=== PATIENT | male | born 1995 | race Caucasian/White ===

== ENCOUNTER 2017-02-28 20:22 | Emergency (ER) | payer OTHER ==
[2017-02-28] MEDS ORDERED: Sodium Chloride 0.9% 1000 ML 1,000 ML IV STA (20:30)
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
[2017-02-28] MEDS ORDERED: Sodium Chloride 0.9% 1000 ML 1,000 ML ONE (20:39)
[2017-02-28 20:49] LABS: BASOPHIL % 0.3 % (0.0-0.4); Eosinophil % 1.7 % (0.00-5.0); Granulocytes % 50.6 % (36.0-66.0); Lymphocytes % 36.5 % (24.0-44.0); Mean Cell Volume 85.5 fl (78-100); Mean Corpuscular Hemoglobin 29.3 pg (26-32); Mean Platelet Volume 10.3 fl (6-9.5); Monocytes % 10.9 % (0.0-12.0); Platelet Count 274 K/mm3 (150-450); Red Blood Count 5.25 M/mm3 (4.1-5.6); White Blood Count 10.2 K/mm3 (4.0-10.5)
[2017-02-28 21:14] LABS: BLOOD UREA NITROGEN 12 mg/dL (9-20); CHLORIDE 104 mEq/L (98-107); Carbon Dioxide 22.3 mEq/L (21-32); Glucose 90 MG/DL (70-110); Potassium 3.7 mEq/L (3.5-5.1); SODIUM 142 mEq/L (136-145)
[2017-02-28 22:27] VITALS: BP 133/75; PULSE 98; O2SAT 97
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
== END 2017-02-28 22:29 | disposition home or self-care (01) ==
LOC: ED 20:22
DX: F19.10 Other psychoactive substance abuse, uncomplicated (principal); S00.03XA Contusion of scalp, initial encounter; V40.5XXA Car driver injured in collision with pedestrian or animal in traffic accident, initial encounter
CPT/HCPCS: 36415; 70450; 80048; 80307; 80320; 83986; 85025; 93005; 99283; 99284

== ENCOUNTER 2019-09-07 15:34 | Emergency (ER) | payer OTHER ==
[2019-09-07] MEDS ORDERED: Ativan 1 MG PO ONE (15:37)
[2019-09-07] MEDS ORDERED: Ativan 1 MG ONE (15:39)
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
[2019-09-07 17:09] VITALS: O2SAT 100
[2019-09-07 17:52] VITALS: BP 170/57; PULSE 114
== END 2019-09-07 17:57 | disposition home or self-care (01) ==
LOC: ED 15:34
DX: F41.9 Anxiety disorder, unspecified (principal); R06.4 Hyperventilation; Z79.899 Other long term (current) drug therapy; I10 Essential (primary) hypertension
CPT/HCPCS: 99283; A9270-GY

== ENCOUNTER 2019-09-09 00:42 | Emergency (ER) | payer OTHER ==
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
[2019-09-09 01:09] VITALS: O2SAT 98
[2019-09-09] MEDS ORDERED: Ativan 2 MG/1 ML VIAL IM ONE (01:37)
[2019-09-09] MEDS ORDERED: Ativan 2 MG/1 ML VIAL ONE (01:42)
[2019-09-09 02:36] VITALS: BP 122/89; PULSE 82
== END 2019-09-09 02:35 | disposition home or self-care (01) ==
LOC: ED 00:42
DX: F43.0 Acute stress reaction (principal); F32.9 Major depressive disorder, single episode, unspecified
CPT/HCPCS: 96372; 99283; J2060

== ENCOUNTER 2020-07-22 00:39 | Emergency (ER) | payer OTHER ==
[2020-07-22] MEDS ORDERED: XYLOCAINE 1% HCL 20 ML MDV IJ ONE (00:40)
[2020-07-22 00:46] VITALS: O2SAT 99
[2020-07-22] MEDS ORDERED: Rocephin 1000 MG INJ IM ONE (00:58)
--- NOTE | 2020-07-22 01:09 | ERPHSYRPT ---
- History of Present Illness Source: patient Exam Limitations: no limitations Patient Subjective Stated Complaint: pt c/o finger pain to rt middle finger x3 days, thinks splinter is in it Triage Nursing Assessment: pt has 0.5 cm L x 0.2 cm W x 0.1 cm D cut to rt middle finger lateral aspect. Pt states, "I think I have a piece of wood in it or something". Pt states it was draining this evening, with orangy green pus. Area appears to be dry at this time, tender to touch, and edematous and red. Occurred: days ago (3) Method of Injury: direct blow Quality: constant Severity of Pain-Max: moderate Severity of Pain-Current: moderate Extremities Pain Location: 3rd finger: right (SWelling, red) Modifying Factors: Improves With: movement Allergies/Adverse Reactions: aripiprazole [From [facility]] Allergy (Intermediate, Verified 07/22/20 00:53) BLACKED OUT Home Medications: Lisinopril 5 mg [Zestril 5 MG] 5 mg PO DAILY 10/09/15 [History] Albuterol 2.5 mg/3 ml Neb [Proventil 2.5 mg/3 ml Neb] 3 ml IH Q6H 11/05/16 [History] Albuterol Common Canister [Ventolin Common Canister] 1 puff PO Q4H PRN PRN 11/05/16 [History] Albuterol Sulfate [Proair Hfa] 8.5 gm IH QID 11/05/16 [History] Paliperidone Palmitate [Invega Trinza] 410 mg IM Q3M 09/07/19 [History] Omeprazole 20 mg PO DAILY 09/09/19 [History] Clonazepam 0.5 mg PO TID 09/11/19 [History] Hx Tetanus, Diphtheria Vaccination/Date Given: Yes Hx Influenza Vaccination/Date Given: No Hx Pneumococcal Vaccination/Date Given: No Immunizations Up to Date: Yes Travel Risk - International Travel Have you traveled outside of the country in past 3 weeks: No - Coronavirus Screening Are you exhibiting any of the following symptoms?: No Close contact with a COVID-19 positive Pt in past 14-21 Days: No - Review of Systems Constitutional: No Fever, No Chills Eyes: No Symptoms Ears, Nose, & Throat: No Symptoms Respiratory: No Cough, No Dyspnea Cardiac: No Chest Pain, No Edema, No Syncope Abdominal/Gastrointestinal: No Abdominal Pain, No Nausea, No Vomiting, No Diarrhea Genitourinary Symptoms: No Dysuria Musculoskeletal: Joint Pain, Joint Swelling, No Back Pain, No Neck Pain Skin: Cellulitis, No Rash Neurological: No Dizziness, No Focal Weakness, No Sensory Changes Psychological: No Symptoms Endocrine: No Symptoms All Other Systems: Reviewed and Negative - Past Medical History Pertinent Past Medical History: Yes Neurological History: Migraines, Other ENT History: Other Cardiac History: Hypertension Respiratory History: Asthma Endocrine Medical History: No Pertinent History Musculoskeletal History: No Pertinent History GI Medical History: GERD, Other History: No Pertinent History Psycho-Social History: Anxiety, Attention Deficit Disorder, Depression Male Reproductive Disorders: No Pertinent History - Past Surgical History Past Surgical History: Yes Neuro Surgical History: No Pertinent History Cardiac: No Pertinent History Respiratory: No Pertinent History Gastrointestinal: Appendectomy Genitourinary: No Pertinent History Musculoskeletal: Orthopedic Surgery Male Surgical History: No Pertinent History Other Surgical History: LT LEG/ANKLE. EGD. rt leg debridement - Social History Smoking Status: Current every day smoker How long have you smoked: 7 years Exposure to second hand smoke: Yes Drug Use: none Patient Lives Alone: No Significant Family History: hypertension, other (mother recently from a bleeding stomach ulcer) - Nursing Vital Signs Nursing Vital Signs: Initial Vital Signs Temperature 97.6 F 07/22/20 00:44 Pulse Rate 110 H 07/22/20 00:44 Respiratory Rate 22 07/22/20 00:44 Blood Pressure 143/75 07/22/20 00:44 O2 Sat by Pulse Oximetry 99 07/22/20 00:44 Pain Scale Pain Intensity 7 - Physical Exam General Appearance: alert Eyes, Ears, Nose, Throat Exam: moist mucous membranes Neck Exam: non-tender, supple Cardiovascular/Respiratory Exam: chest non-tender, normal breath sounds, regular rate/rhythm, no respiratory distress Abdominal Exam: non-tender, No guarding Back Exam: normal inspection, No vertebral tenderness Hand Exam: infection, limited ROM (2-3rd digit), soft tissue tenderness, swelling Neuro/Tendon Exam: normal sensation, normal motor functions Mental Status Exam: alert, oriented x 3, cooperative Skin Exam: normal color, warm, dry, abrasion SpO2: 99 Comments: NO Kan[place] sign. NO increased tenderness with extension along flexor tendon sheath. Swelling, pain and redness limited to proximal phalanx area. Good ROM overall I do not feel this is infected FT or tenosynovitis. - Course Nursing assessment & vital signs reviewed: Yes - Radiology Exams Right Hand X-ray Interpretation: Interpreted by me, Other (STS, no FB) Ordered Tests: Active Orders 24 hr Category Date Time Status FINGER(S) Stat Exams 07/22/20 01:22 Taken CBC W DIFF Stat Lab 07/22/20 01:40 Results ESR [Erythrocyte Sedimentation Rate] Stat Lab 07/22/20 01:40 Results Medication Summary Discontinued Medications Generic Name Dose Route Start Last Admin Trade Name Freq PRN Reason Stop Dose Admin Ceftriaxone Sodium 1,000 mg 07/22/20 00:58 07/22/20 01:17 Rocephin 1000 Mg Inj IM 07/22/20 00:59 1,000 mg STAT ONE Administration Ceftriaxone Sodium Confirm 07/22/20 01:14 Rocephin 1000 Mg Inj Administered 07/22/20 01:15 Dose 1,000 mg .ROUTE .STK-MED ONE Lab/Rad Data: Laboratory Result Diagrams 07/22/20 01:40 Laboratory Results 07/22/20 Range/Units 01:40 WBC 13.0 H (4.0-10.5) K/mm3 RBC 4.64 (4.1-5.6) M/mm3 Hgb 13.8 (12.5-18.0) gm/dl Hct 42.1 (42-50) % MCV 90.7 (78-100) fl MCH 29.7 (26-32) pg MCHC 32.8 (32-36) g/dl RDW 15.1 H (11.5-14.0) % Plt Count 268 (150-450) K/mm3 MPV 9.5 (7.5-11.0) fl Gran % 74.0 H (36.0-66.0) % Eos # (Auto) 0.14 (0-0.5) Absolute Lymphs (auto) 2.28 (1.0-4.6) Absolute Monos (auto) 0.92 (0.0-1.3) Lymphocytes % 17.6 L (24.0-44.0) % Monocytes % 7.1 (0.0-12.0) % Eosinophils % 1.1 (0.00-5.0) % Basophils % 0.2 (0.0-0.4) % Absolute Granulocytes 9.62 H (1.4-6.9) Basophils # 0.03 (0-0.4) ESR Pending - Progress Progress: improved Progress Note: 07/22/20 02:08 Unlikely TS Cellulitis-rocephin IM given, steroids. Rx as well. Followup to ortho. DC home. Counseled pt/family regarding: lab results, diagnosis, need for follow-up, rad results - Departure Departure Disposition: Home Clinical Impression: Cellulitis and abscess of finger, unspecified Condition: Stable Critical Care Time: No Referrals: JOLYNN WRAY MD [Primary Care Provider] - Instructions: Cellulitis (Skin Infection), Adult (DC) Additional Instructions: Take meds as prescribed. Elevation Motrin or tylenol for pain Follow up ortho on Friday if not better-see handout REturn to ER if worse. Prescriptions: Clindamycin HCl 300 mg PO TID 10 Days #30 capsule Prednisone 20 mg [Deltasone 20 mg] 40 mg PO DAILY 5 Days #10 tablet
[2020-07-22] MEDS ORDERED: Rocephin 1000 MG INJ ONE (01:14)
[2020-07-22 01:50] LABS: Absolute Neutrophil Ct (ANC) 9.62 (1.4-6.9); BASOPHIL % 0.2 % (0.0-0.4); Basophil (Absolute #) 0.03 (0-0.4); Eosinophil % 1.1 % (0.00-5.0); Eosinophil (Absolute #) 0.14 (0-0.5); Hematocrit 42.1 % (42-50); Hemoglobin 13.8 gm/dl (12.5-18.0); Lymphocyte (Absolute #) 2.28 (1.0-4.6); Lymphocytes % 17.6 % (24.0-44.0); Mean Cell Volume 90.7 fl (78-100); Mean Corpuscular Hemoglobin 29.7 pg (26-32); Mean Corpuscular Hgb Concent. 32.8 g/dl (32-36); Mean Platelet Volume 9.5 fl (7.5-11.0); Monocyte (Absolute #) 0.92 (0.0-1.3); Monocytes % 7.1 % (0.0-12.0); Platelet Count 268 K/mm3 (150-450); Red Blood Count 4.64 M/mm3 (4.1-5.6); Red Cell Distribution Width 15.1 % (11.5-14.0)
[2020-07-22] MEDS ORDERED: NORCO 7.5/325 MG TAB PO ONE (02:05)
[2020-07-22] MEDS ORDERED: DELTASONE 20 MG PO ONE (02:05)
[2020-07-22 02:13] LABS: Erythrocyte Sedimentation Rate 13 mm/hr (0-15)
[2020-07-22] MEDS ORDERED: DELTASONE 20 MG ONE (02:25)
[2020-07-22 02:35] VITALS: BP 142/86; PULSE 96
--- NOTE | 2020-07-22 07:55 | XRAY ---
Indication: Foreign body. Cellulitis. Comparison: None 3 view right 3rd finger demonstrates soft tissue swelling. No other bony, articular, or soft tissue abnormalities.
== END 2020-07-22 02:33 | disposition home or self-care (01) ==
LOC: ED 00:39
DX: L03.011 Cellulitis of right finger (principal); L02.511 Cutaneous abscess of right hand; I10 Essential (primary) hypertension; Z79.899 Other long term (current) drug therapy
CPT/HCPCS: 36415; 73140; 85025; 85652; 96372; 99284; J0696; A9270-GY

== ENCOUNTER 2020-08-18 00:02 | Emergency (ER) | payer OTHER ==
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
[2020-08-18] MEDS ORDERED: Adacel Vial IM ONE ×2 (00:21→00:24)
[2020-08-18] MEDS ORDERED: Augmentin 500-125 Tablet PO ONE (00:25)
[2020-08-18] MEDS ORDERED: Augmentin 500-125 Tablet ONE (00:27)
[2020-08-18] MEDS ORDERED: TORAdol 30 mg Injection IM ONE (01:07)
[2020-08-18] MEDS ORDERED: TORAdol 30 mg Injection ONE (01:13)
[2020-08-18 01:21] VITALS: O2SAT 100
[2020-08-18] MEDS ORDERED: NORCO 5/325 MG PO ONE (01:39)
[2020-08-18] MEDS ORDERED: NORCO 5/325 MG ONE (01:43)
[2020-08-18 02:02] VITALS: BP 123/64; PULSE 93
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
== END 2020-08-18 02:05 | disposition home or self-care (01) ==
LOC: ED 00:02
DX: S01.511A Laceration without foreign body of lip, initial encounter (principal); S60.572A Other superficial bite of hand of left hand, initial encounter; S60.571A Other superficial bite of hand of right hand, initial encounter; Z79.899 Other long term (current) drug therapy; Y04.0XXA Assault by unarmed brawl or fight, initial encounter; Y04.1XXA Assault by human bite, initial encounter; I10 Essential (primary) hypertension
CPT/HCPCS: 12011; 70450; 70486; 90471; 90715; 96372; 99284; J1885; A9270-GY

== ENCOUNTER 2021-01-18 21:35 | Emergency (ER) | payer OTHER ==
--- NOTE | 2021-01-18 21:37 | ERPHSYRPT ---
- History of Present Illness Time Seen by Provider: 01/18/21 21:37 Source: patient Exam Limitations: no limitations Physician History: This is a morbidly obese 25-year-old white male who presents with approximate 1 week history of worsening left hand infection. Patient was given a prescription of Bactrim DS and only took 3 days worth and cannot find his medication. Since that time his redness is increasing. Patient does not have a fever. He said no significant drainage from the site. Patient has not been washing his hands well. Has a history of migraines, hypertension, anxiety issues. Timing/Duration: week(s) (1) Quality: painful Severity: mild Location: hands (Left hand dorsal aspect) Associated Symptoms: change in skin texture Allergies/Adverse Reactions: aripiprazole [From [facility]] Allergy (Intermediate, Verified 01/18/21 21:59) BLACKED OUT Home Medications: Lisinopril 5 mg [Zestril 5 MG] 5 mg PO DAILY 10/09/15 [History] Albuterol 2.5 mg/3 ml Neb [Proventil 2.5 mg/3 ml Neb] 3 ml IH Q6H 11/05/16 [History] Albuterol Common Canister [Ventolin Common Canister] 1 puff PO Q4H PRN PRN 11/05/16 [History] Albuterol Sulfate [Proair Hfa] 8.5 gm IH QID 11/05/16 [History] Paliperidone Palmitate [Invega Trinza] 410 mg IM Q3M 09/07/19 [History] Omeprazole 20 mg PO DAILY 09/09/19 [History] Clonazepam 2 mg PO BID 09/11/19 [History] Hx Tetanus, Diphtheria Vaccination/Date Given: Yes Hx Influenza Vaccination/Date Given: No Hx Pneumococcal Vaccination/Date Given: No Travel Risk - International Travel Have you traveled outside of the country in past 3 weeks: No - Coronavirus Screening Are you exhibiting any of the following symptoms?: No Close contact with a COVID-19 positive Pt in past 14-21 Days: No - Vaccine Status Have you recieved a Covid-19 vaccination: No - Review of Systems Constitutional: No Symptoms Eyes: No Symptoms Ears, Nose, & Throat: No Symptoms Respiratory: No Symptoms Cardiac: No Symptoms Abdominal/Gastrointestinal: No Symptoms Genitourinary Symptoms: No Symptoms Musculoskeletal: No Symptoms Skin: Cellulitis (Left hand dorsal aspect) Neurological: No Symptoms Psychological: No Symptoms Endocrine: No Symptoms Hematologic/Lymphatic: No Symptoms Immunological/Allergic: No Symptoms All Other Systems: Reviewed and Negative - Past Medical History Pertinent Past Medical History: Yes Neurological History: Migraines, Other ENT History: Other Cardiac History: Hypertension Respiratory History: Asthma Endocrine Medical History: No Pertinent History Musculoskeletal History: No Pertinent History GI Medical History: GERD, Other History: No Pertinent History Psycho-Social History: Anxiety, Attention Deficit Disorder, Depression Male Reproductive Disorders: No Pertinent History - Past Surgical History Past Surgical History: Yes Neuro Surgical History: No Pertinent History Cardiac: No Pertinent History Respiratory: No Pertinent History Gastrointestinal: Appendectomy Genitourinary: No Pertinent History Musculoskeletal: Orthopedic Surgery Male Surgical History: No Pertinent History Other Surgical History: LT LEG/ANKLE. EGD. rt leg debridement - Social History Smoking Status: Current every day smoker How long have you smoked: 7 years Exposure to second hand smoke: Yes Drug Use: none Patient Lives Alone: No Significant Family History: hypertension, other (mother recently from a bleeding stomach ulcer) - Nursing Vital Signs Nursing Vital Signs: Initial Vital Signs Temperature 97.7 F 01/18/21 21:49 Pulse Rate 104 H 01/18/21 21:49 Respiratory Rate 20 01/18/21 21:49 Blood Pressure 108/82 01/18/21 21:49 O2 Sat by Pulse Oximetry 98 01/18/21 21:49 Pain Scale Pain Intensity 6 - Physical Exam General Appearance: no apparent distress, alert, anxiety, obese Eye Exam: PERRL/EOMI, eyes nml inspection Ears, Nose, Throat Exam: normal ENT inspection, moist mucous membranes Neck Exam: normal inspection, non-tender, supple, full range of motion Respiratory Exam: No chest tenderness, No respiratory distress Cardiovascular Exam: regular rate/rhythm, normal heart sounds, normal peripheral pulses Gastrointestinal/Abdomen Exam: No tenderness Rectal Exam: not done Back Exam: normal inspection, normal range of motion, No CVA tenderness, No vertebral tenderness Extremity Exam: normal range of motion, pelvis stable, tenderness (Redness dorsal aspect left hand. 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 No odor and no expressible pus.) Lymphatic Exam: No adenopathy O2 Delivery: Room Air - Course Nursing assessment & vital signs reviewed: Yes Ordered Tests: Medication Summary Discontinued Medications Generic Name Dose Route Start Last Admin Trade Name Tom PRN Reason Stop Dose Admin Hydrocodone Bitart/Acetaminophen 1 tab 01/18/21 22:08 01/18/21 22:11 [place] 5/325 Mg PO 01/18/21 22:09 1 tab STAT ONE Administration Hydrocodone Bitart/Acetaminophen Confirm 01/18/21 22:09 [place] 5/325 Mg Administered 01/18/21 22:10 Dose 1 tab .ROUTE .STK-MED ONE Ceftriaxone Sodium 1,000 mg 01/18/21 22:08 01/18/21 22:12 Rocephin 1000 Mg Inj IM 01/18/21 22:09 1,000 mg STAT ONE Administration Ceftriaxone Sodium Confirm 01/18/21 22:10 Rocephin 1000 Mg Inj Administered 01/18/21 22:11 Dose 1,000 mg .ROUTE .STK-MED ONE Trimethoprim/Sulfamethoxazole 1 tab 01/18/21 22:09 01/18/21 22:12 Bactrim Ds Tablet PO 01/18/21 22:10 1 tab STAT ONE Administration Trimethoprim/Sulfamethoxazole Confirm 01/18/21 22:09 Bactrim Ds Tablet Administered 01/18/21 22:10 Dose 1 tab PO .STK-MED ONE - Progress Progress: unchanged Counseled pt/family regarding: diagnosis, need for follow-up - Departure Departure Disposition: Home Clinical Impression: Cellulitis Condition: Stable Critical Care Time: No Referrals: JOLYNN WRAY MD [Primary Care Provider] - Additional Instructions: Wash area 2 times a day with soap and water. Scrub the scab site. Use Tylenol and ibuprofen for pain control. Follow-up with your primary care doctor for further management. Take your medications as prescribed. Prescriptions: Smz/Tmp Ds Tablet [Bactrim Ds Tablet] 1 udtab PO BID #14 tablet
[2021-01-18] MEDS ORDERED: NORCO 5/325 MG PO ONE (22:08)
[2021-01-18] MEDS ORDERED: Rocephin 1000 MG INJ IM ONE (22:08)
[2021-01-18] MEDS ORDERED: NORCO 5/325 MG ONE (22:09)
[2021-01-18] MEDS ORDERED: BACTRIM DS TABLET PO ONE ×2 (22:09)
[2021-01-18] MEDS ORDERED: Rocephin 1000 MG INJ ONE (22:10)
[2021-01-18 22:35] VITALS: BP 124/79; PULSE 90; O2SAT 99
== END 2021-01-18 22:35 | disposition home or self-care (01) ==
LOC: ED 21:35
DX: L03.90 Cellulitis, unspecified (principal)
CPT/HCPCS: 96372; 99284; J0696; A9270-GY

== ENCOUNTER 2021-02-02 01:30 | Emergency (ER) | payer MEDICAID ==
[2021-02-02 01:54] VITALS: O2SAT 100
[2021-02-02] MEDS ORDERED: BACIGUENT PACKET TP ONE (01:58)
--- NOTE | 2021-02-02 02:05 | ERPHSYRPT ---
- History of Present Illness Time Seen by Provider: 02/02/21 01:50 Source: patient Exam Limitations: no limitations Patient Subjective Stated Complaint: pt states he accidently cut his arm while opeing a knife. states he was worried about possibly hitting an artery Triage Nursing Assessment: pt alert and oriented, answers questions approp. pt ambulatory with steady gait noted. respirations nonlabored with lungs cta. puncture wound to lt forearm, bruising surrounding. no bleeding noted at this time. cap refill and radial pulse wnl. Physician History: 25 years old male with a history of anxiety, hypertension presented in the ER after he accidentally dropped a knife while opening on his left forearm almost 45 minutes prior to arrival causing a small stab wound/laceration. There was minimal bleeding initially was stopped. Applying pressure. He is complaining of dull aching pain proximal and distal to the lesion. No obvious swelling. Patient is worried about it might have hit the artery. Up-to-date with tetanus. Timing/Duration: today, sudden Quality: painful Severity: mild Location: extremities Possible Causes: other Allergies/Adverse Reactions: aripiprazole [From Abilify] Allergy (Intermediate, Verified 02/02/21 01:54) BLACKED OUT Home Medications: Lisinopril 5 mg [Zestril 5 MG] 5 mg PO DAILY 10/09/15 [History] Albuterol 2.5 mg/3 ml Neb [Proventil 2.5 mg/3 ml Neb] 3 ml IH Q6H 11/05/16 [History] Albuterol Common Canister [Ventolin Common Canister] 1 puff PO Q4H PRN PRN 11/05/16 [History] Albuterol Sulfate [Proair Hfa] 8.5 gm IH QID 11/05/16 [History] Paliperidone Palmitate [Invega Trinza] 410 mg IM Q3M 09/07/19 [History] Omeprazole 20 mg PO DAILY 09/09/19 [History] Clonazepam 2 mg PO BID 09/11/19 [History] Hx Tetanus, Diphtheria Vaccination/Date Given: Yes Hx Influenza Vaccination/Date Given: No Hx Pneumococcal Vaccination/Date Given: No Immunizations Up to Date: Yes Travel Risk - International Travel Have you traveled outside of the country in past 3 weeks: No - Coronavirus Screening Are you exhibiting any of the following symptoms?: No - Vaccine Status Have you recieved a Covid-19 vaccination: No - Review of Systems Constitutional: No Symptoms Eyes: No Symptoms Ears, Nose, & Throat: No Symptoms Respiratory: No Symptoms Cardiac: No Symptoms Abdominal/Gastrointestinal: No Symptoms Genitourinary Symptoms: No Symptoms Musculoskeletal: Injury Skin: Skin Lesions Neurological: No Symptoms Psychological: Anxiety, No Suicidal Ideations, No Homicidal Ideations Endocrine: No Symptoms Hematologic/Lymphatic: No Symptoms Immunological/Allergic: No Symptoms - Past Medical History Pertinent Past Medical History: Yes Neurological History: Migraines, Other ENT History: Other Cardiac History: Hypertension Respiratory History: Asthma Endocrine Medical History: No Pertinent History Musculoskeletal History: No Pertinent History GI Medical History: GERD, Other History: No Pertinent History Psycho-Social History: Anxiety, Attention Deficit Disorder, Depression Male Reproductive Disorders: No Pertinent History Other Medical History: lt ankle fx. flesh eating bacteria - Past Surgical History Past Surgical History: Yes Neuro Surgical History: No Pertinent History Cardiac: No Pertinent History Respiratory: No Pertinent History Gastrointestinal: Appendectomy Genitourinary: No Pertinent History Musculoskeletal: Orthopedic Surgery Male Surgical History: No Pertinent History Other Surgical History: LT LEG/ANKLE. EGD. rt leg debridement - Social History Smoking Status: Current every day smoker How long have you smoked: 7 years Exposure to second hand smoke: Yes Drug Use: none Patient Lives Alone: No Significant Family History: hypertension, other (mother recently from a bleeding stomach ulcer) - Nursing Vital Signs Nursing Vital Signs: Initial Vital Signs Temperature 97.8 F 02/02/21 01:44 Pulse Rate 82 02/02/21 01:44 Respiratory Rate 16 02/02/21 01:44 Blood Pressure 124/74 02/02/21 01:44 O2 Sat by Pulse Oximetry 100 02/02/21 01:44 Pain Scale Pain Intensity 5 - Physical Exam General Appearance: no apparent distress, alert, anxiety Eye Exam: PERRL/EOMI Ears, Nose, Throat Exam: normal ENT inspection, pharynx normal Neck Exam: normal inspection, supple, full range of motion Respiratory Exam: normal breath sounds, lungs clear Cardiovascular Exam: regular rate/rhythm, normal heart sounds Extremity Exam: tenderness (Superficial skin puncture/abrasion left forearm volar aspect on the upper side. No active bleeding spurting or bruising. Intact distal neurovascular.) Neurologic Exam: alert, oriented x 3, cooperative Skin Exam: normal color SpO2 Interpretation: normal SpO2: 100 O2 Delivery: Room Air - Progress Progress: unchanged Progress Note: 02/02/21 02:02 Wound is cleaned and is superficial skin puncture. Do not need stitch. Bacitracin applied. Recommended Tylenol ibuprofen as needed and outpatient follow-up. Discussed signs symptoms of infection needing return to ER which he seems understanding. Counseled pt/family regarding: diagnosis, need for follow-up - Departure Departure Disposition: Home Clinical Impression: Puncture wound of forearm Qualifiers: Encounter type: initial encounter Laterality: left Qualified Code(s): S51.832A - Puncture wound without foreign body of left forearm, initial encounter Condition: Stable Critical Care Time: No Referrals: JOLYNN WRAY MD [Primary Care Provider] - Follow Up with PCP/3 days Instructions: Wound Care (DC) Additional Instructions: Keep it clean, use Tylenol/ibuprofen as needed for pain. Follow-up with primary care physician for reevaluation. Return to ER for increasing pain swelling redness discharge/fever chills etc. Prescriptions: Bacitracin 15 gm TP BID #1 tube
[2021-02-02] MEDS ORDERED: BACIGUENT PACKET ONE (02:11)
[2021-02-02 02:30] VITALS: BP 102/40; PULSE 72
== END 2021-02-02 02:29 | disposition home or self-care (01) ==
LOC: ED 01:30
DX: S51.832A Puncture wound without foreign body of left forearm, initial encounter (principal); W26.0XXA Contact with knife, initial encounter; Y93.9 Activity, unspecified; Y92.89 Other specified places as the place of occurrence of the external cause
CPT/HCPCS: 99283; A9270-GY

== ENCOUNTER 2021-05-06 19:16 | Emergency (ER) | payer MEDICAID ==
--- NOTE | 2021-05-06 19:20 | ERPHSYRPT ---
- History of Present Illness Time Seen by Provider: 05/06/21 19:19 Historian: patient Exam Limitations: no limitations Physician History: This is a morbidly obese 25-year-old white male patient of Dr. Wray, who has a history of hypertension, asthma, gastroesophageal reflux disease anxiety disorder, ADD and depression and was recently diagnosed with orthostatic hypot ension and presents with several day history of first constipation and in the last 2 days the patient has complained of diarrhea. He had nausea and vomiting today. His only abdominal surgery was an appendectomy in the distant past. Patient denies shortness of breath. He denies chest pain Timing/Duration: day(s) (2) Quality: cramping Abdominal Pain Onset Location: generalized abdomen Pain Radiation: no radiation Severity of Pain-Max: mild (To moderate) Severity of Pain-Current: mild (To moderate) Modifying Factors: Improves With: vomiting Associated Symptoms: diarrhea, nausea, vomiting Previous symptoms: same symptoms as today, no recent treatment Allergies/Adverse Reactions: aripiprazole [From LaComunity] Allergy (Intermediate, Verified 02/02/21 01:54) BLACKED OUT Home Medications: Lisinopril 5 mg [Zestril 5 MG] 20 mg PO DAILY 10/09/15 [History] Albuterol 2.5 mg/3 ml Neb [Proventil 2.5 mg/3 ml Neb] 3 ml IH Q6H 11/05/16 [History] Albuterol Sulfate [Proair Hfa] 8.5 gm IH QID 11/05/16 [History] Paliperidone Palmitate [Invega Trinza] 410 mg IM Q3M 09/07/19 [History] Omeprazole 20 mg PO DAILY PRN PRN 09/09/19 [History] Clonazepam 2 mg PO BID 09/11/19 [History] Hx Tetanus, Diphtheria Vaccination/Date Given: Yes Hx Influenza Vaccination/Date Given: No Hx Pneumococcal Vaccination/Date Given: No Travel Risk - International Travel Have you traveled outside of the country in past 3 weeks: No - Coronavirus Screening Are you exhibiting any of the following symptoms?: No Close contact with a COVID-19 positive Pt in past 14-21 Days: No - Vaccine Status Have you recieved a Covid-19 vaccination: No - Review of Systems Constitutional: No Symptoms Eyes: No Symptoms Ears, Nose, & Throat: No Symptoms Respiratory: No Symptoms Cardiac: No Symptoms Abdominal/Gastrointestinal: Abdominal Pain, Vomiting, Diarrhea Genitourinary Symptoms: No Symptoms Musculoskeletal: No Symptoms Skin: No Symptoms Neurological: No Symptoms Psychological: No Symptoms Endocrine: No Symptoms Hematologic/Lymphatic: No Symptoms Immunological/Allergic: No Symptoms All Other Systems: Reviewed and Negative - Past Medical History Pertinent Past Medical History: Yes Neurological History: Migraines, Other ENT History: Other Cardiac History: Hypertension Respiratory History: Asthma Endocrine Medical History: No Pertinent History Musculoskeletal History: No Pertinent History GI Medical History: GERD, Other History: No Pertinent History Psycho-Social History: Anxiety, Attention Deficit Disorder, Depression Male Reproductive Disorders: No Pertinent History Other Medical History: lt ankle fx. flesh eating bacteria - Past Surgical History Past Surgical History: Yes Neuro Surgical History: No Pertinent History Cardiac: No Pertinent History Respiratory: No Pertinent History Gastrointestinal: Appendectomy Genitourinary: No Pertinent History Musculoskeletal: Orthopedic Surgery Male Surgical History: No Pertinent History Other Surgical History: LT LEG/ANKLE. EGD. rt leg debridement - Social History Smoking Status: Current every day smoker How long have you smoked: 7 years Exposure to second hand smoke: Yes Drug Use: none Patient Lives Alone: No Significant Family History: hypertension, other (mother recently from a bleeding stomach ulcer) - Nursing Vital Signs Nursing Vital Signs: Initial Vital Signs Temperature 96.8 F 05/06/21 19:29 Pulse Rate 108 H 05/06/21 19:29 Respiratory Rate 20 05/06/21 19:29 Blood Pressure 102/58 05/06/21 19:29 O2 Sat by Pulse Oximetry 98 05/06/21 19:29 Pain Scale Pain Intensity 5 - Physical Exam General Appearance: no apparent distress, alert, anxiety Eye Exam: PERRL/EOMI, eyes nml inspection Ears, Nose, Throat Exam: normal ENT inspection, moist mucous membranes Neck Exam: normal inspection, non-tender, supple, full range of motion Respiratory Exam: normal breath sounds, lungs clear, airway intact, No chest tenderness, No respiratory distress Cardiovascular Exam: regular rate/rhythm, normal heart sounds, normal peripheral pulses Gastrointestinal/Abdomen Exam: soft, normal bowel sounds, tenderness (Mild diffuse with palpation), guarding, No rebound Rectal Exam: not done Back Exam: normal inspection, normal range of motion, No CVA tenderness, No vertebral tenderness Extremity Exam: normal inspection, normal range of motion, pelvis stable Neurologic Exam: alert, oriented x 3, cooperative, board worker II-XII nml as tested, normal mood/affect, nml cerebellar function, nml station & gait, sensation nml Skin Exam: normal color, warm, dry Lymphatic Exam: No adenopathy SpO2 Interpretation: normal O2 Delivery: Room Air - Course Nursing assessment & vital signs reviewed: Yes Ordered Tests: Active Orders 24 hr Category Date Time Status IV Insertion STAT Care 05/06/21 19:46 Active ABDOMEN AND PELVIS W/0 CONTRAS [CT] Stat Exams 05/06/21 19:46 Taken AMYLASE Stat Lab 05/06/21 20:18 Completed CBC W DIFF Stat Lab 05/06/21 20:18 Completed CMP Stat Lab 05/06/21 20:18 Completed LIPASE Stat Lab 05/06/21 20:18 Completed Lactic Acid Stat Lab 05/06/21 20:12 Completed UA W/RFX UR CULTURE Stat Lab 05/06/21 21:26 Ordered Transfer Order Routine Transfer 05/06/21 Ordered Medication Summary Generic Name Dose Route Start Last Admin Trade Name Freq PRN Reason Stop Dose Admin Piperacillin Sod/Tazobactam 100 mls @ 200 mls/hr 05/06/21 21:27 Sod 3.375 gm/ Sodium Chloride IV 05/06/21 21:56 STAT ONE Discontinued Medications Generic Name Dose Route Start Last Admin Trade Name Freq PRN Reason Stop Dose Admin Calcium Gluconate 1,000 mg 05/06/21 20:50 05/06/21 21:07 Calcium Gluconate 10% 1000 Mg IV 05/06/21 20:51 1,000 mg STAT ONE Administration Calcium Gluconate Confirm 05/06/21 21:03 Calcium Gluconate 10% 1000 Mg Administered 05/06/21 21:04 Dose 1,000 mg IV .STK-MED ONE Dextrose 50 ml 05/06/21 20:51 05/06/21 21:07 D50w 50 Ml Abboject IV 05/06/21 20:52 50 ml STAT ONE Administration Dextrose Confirm 05/06/21 21:05 D50w 50 Ml Abboject Administered 05/06/21 21:06 Dose 50 ml IV .STK-MED ONE Hydromorphone HCl 0.5 mg 05/06/21 19:46 05/06/21 20:03 Hydromorphone 1 Mg/Ml Injection IV 05/06/21 19:47 0.5 mg STAT ONE Administration Hydromorphone HCl Confirm 05/06/21 20:02 Hydromorphone 1 Mg/Ml Injection Administered 05/06/21 20:03 Dose 1 mg .ROUTE .STK-MED ONE Sodium Chloride 1,000 mls @ 999 mls/hr 05/06/21 19:46 05/06/21 21:04 Sodium Chloride 0.9% 1000 Ml IV 05/06/21 20:46 Infused .Q1H1M STA Infusion Sodium Chloride Confirm 05/06/21 20:02 Sodium Chloride 0.9% 1000 Ml Administered 05/06/21 20:03 Dose 1,000 mls @ ud .ROUTE .STK-MED ONE Insulin Human Regular 2 unit 05/06/21 21:27 Humulin R IV 05/06/21 21:28 STAT ONE Morphine Sulfate 4 mg 05/06/21 19:46 05/06/21 20:01 Morphine Sulfate 4 Mg Inj IV 05/06/21 19:47 Not Given STAT ONE Ondansetron HCl 4 mg 05/06/21 20:01 05/06/21 20:03 Zofran 4 Mg/2 Ml Vial IV 05/06/21 20:02 4 mg STAT ONE Administration Ondansetron HCl Confirm 05/06/21 20:02 Zofran 4 Mg/2 Ml Vial Administered 05/06/21 20:03 Dose 4 mg .ROUTE .STK-MED ONE Sodium Polystyrene Sulfonate 30 g 05/06/21 20:52 05/06/21 20:58 Kayexylate 15 Gm/60 Ml PO 05/06/21 20:53 30 g STAT ONE Administration Sodium Polystyrene Sulfonate Confirm 05/06/21 20:57 Kayexylate 15 Gm/60 Ml Administered 05/06/21 20:58 Dose 15 g .ROUTE .STK-MED ONE Sodium Polystyrene Sulfonate Confirm 05/06/21 20:59 Kayexylate 15 Gm/60 Ml Administered 05/06/21 21:00 Dose 15 g .ROUTE .STK-MED ONE Lab/Rad Data: Laboratory Result Diagrams 05/06/21 20:18 05/06/21 20:18 Laboratory Results 05/06/21 05/06/21 05/06/21 Range/Units 20:18 20:18 20:12 WBC 13.0 H (4.0-10.5) K/mm3 RBC 5.34 (4.1-5.6) M/mm3 Hgb 15.8 (12.5-18.0) gm/dl Hct 48.5 (42-50) % MCV 90.8 (78-100) fl MCH 29.6 (26-32) pg MCHC 32.6 (32-36) g/dl RDW 14.0 (11.5-14.0) % Plt Count 466 H (150-450) K/mm3 MPV 8.6 (7.5-11.0) fl Gran % 84.9 H (36.0-66.0) % Eos # (Auto) 0 (0-0.5) Absolute Lymphs (auto) 1.10 (1.0-4.6) Absolute Monos (auto) 0.83 (0.0-1.3) Lymphocytes % 8.5 L (24.0-44.0) % Monocytes % 6.4 (0.0-12.0) % Eosinophils % 0.0 (0.00-5.0) % Basophils % 0.2 (0.0-0.4) % Absolute Granulocytes 11.02 H (1.4-6.9) Basophils # 0.03 (0-0.4) Sodium 135 L (137-145) mmol/L Potassium 6.2 H* (3.5-5.1) mmol/L Chloride 105 (98-107) mmol/L Carbon Dioxide 17 L (22-30) mmol/L Anion Gap 18.8 H (5-15) MEQ/L BUN 36 H (9-20) mg/dL Creatinine 1.87 H (0.66-1.25) mg/dL Estimated GFR 47.4 ML/MIN Glucose 89 (74-106) mg/dL Lactic Acid 0.6 (0.4-2.0) Calcium 9.7 (8.4-10.2) mg/dL Total Bilirubin 0.30 (0.2-1.3) mg/dL AST 20 (17-59) U/L ALT 19 (0-50) U/L Alkaline Phosphatase 85 (38-126) U/L Serum Total Protein 8.1 (6.3-8.2) g/dL Albumin 4.8 (3.5-5.0) g/dL Amylase 59 (30-110) U/L Lipase 61 (23-300) U/L - Progress Progress: improved, pain not gone completely, re-examined Progress Note: 05/06/21 21:20 CAT scan of the abdomen pelvis without contrast shows no acute intra-abdominal or intrapelvic findings. Medical decision making: This patient has been having generalized abdominal pain with associated vomiting and diarrhea. He has acute renal insufficiency, hyperkalemia and leukocytosis. I spoke with his primary care physician, Dr. Wray and he agrees we should place this patient in observation and write him with IV hydration, Kayexalate, dextrose, a single dose of insulin and repeat labs. We will treat his leukocytosis with Zosyn intravenously. Discussed with : Agustín Counseled pt/family regarding: lab results, diagnosis, need for follow-up, rad results - Departure Departure Disposition: Observation Clinical Impression: Hyperkalemia, Leukocytosis, Acute renal insufficiency Condition: Stable Critical Care Time: No Referrals: JOLYNN WRAY MD [Primary Care Provider] -
[2021-05-06] MEDS ORDERED: Sodium Chloride 0.9% 1000 ML 1,000 ML IV STA (19:46)
[2021-05-06] MEDS ORDERED: Hydromorphone 1 mg/ml Injection IV ONE (19:46)
[2021-05-06] MEDS ORDERED: MORPHINE SULFATE 4 MG INJ IV ONE (19:46)
[2021-05-06] MEDS ORDERED: Zofran 4 MG/2 ML VIAL IV ONE (20:01)
[2021-05-06] MEDS ORDERED: Sodium Chloride 0.9% 1000 ML 1,000 ML ONE (20:02)
[2021-05-06] MEDS ORDERED: Hydromorphone 1 mg/ml Injection ONE (20:02)
[2021-05-06] MEDS ORDERED: Zofran 4 MG/2 ML VIAL ONE (20:02)
[2021-05-06 20:26] LABS: Hematocrit 48.5 % (42-50); Hemoglobin 15.8 gm/dl (12.5-18.0); Mean Cell Volume 90.8 fl (78-100); Mean Corpuscular Hemoglobin 29.6 pg (26-32); Mean Corpuscular Hgb Concent. 32.6 g/dl (32-36); Mean Platelet Volume 8.6 fl (7.5-11.0); Neutrophil % 84.9 % (36.0-66.0); Platelet Count 466 K/mm3 (150-450); Red Blood Count 5.34 M/mm3 (4.1-5.6)
[2021-05-06 20:27] LABS: BASOPHIL % 0.2 % (0.0-0.4); Lymphocytes % 8.5 % (24.0-44.0); Monocytes % 6.4 % (0.0-12.0)
[2021-05-06 20:28] LABS: Absolute Neutrophil Ct (ANC) 11.02 (1.4-6.9); Basophil (Absolute #) 0.03 (0-0.4); Eosinophil (Absolute #) 0 (0-0.5); Monocyte (Absolute #) 0.83 (0.0-1.3)
[2021-05-06 20:37] LABS: ALBUMIN 4.8 g/dL (3.5-5.0); ANION GAP 18.8 MEQ/L (5-15); BILIRUBIN,TOTAL 0.3 mg/dL (0.2-1.3); Calcium 9.7 mg/dL (8.4-10.2); Creatinine 1 1.87 mg/dL (0.66-1.25); EST GLOMERULAR FILTRATION RATE 47.4 ML/MIN; Total Protein 8.1 g/dL (6.3-8.2)
[2021-05-06 20:45] LABS: Potassium 6.2 mmol/L (3.5-5.1)
[2021-05-06] MEDS ORDERED: Calcium Gluconate 10% 1000 MG IV ONE ×2 (20:50→21:03)
[2021-05-06] MEDS ORDERED: D50W 50 ml Abboject IV ONE ×2 (20:51→21:05)
[2021-05-06] MEDS ORDERED: Kayexylate 15 GM/60 ML PO ONE (20:52)
[2021-05-06] MEDS ORDERED: Kayexylate 15 GM/60 ML ONE ×2 (20:57→20:59)
[2021-05-06 21:09] VITALS: PULSE 96; O2SAT 99
[2021-05-06] MEDS ORDERED: HUMULIN R IV ONE (21:27)
[2021-05-06] MEDS ORDERED: HUMULIN R ONE (21:30)
[2021-05-06] MEDS ORDERED: Zosyn 3.375 GM Vial IV ONE (21:31)
[2021-05-06] MEDS ORDERED: Sodium Chloride 100ML MINI-BAG PLUS 100 ML IV ONE (21:31)
[2021-05-06] MEDS: Zosyn 3.375 GM Vial 3.375 GM in Sodium Chloride 100ML MINI-BAG PLUS 100 ML IV ONE ×2 (21:33→21:49)
[2021-05-06 21:54] VITALS: BP 110/62
[2021-05-06 21:59] LABS: Appearance CLOUDY (CLEAR); Bacteria RARE /HPF (NEGATIVE); Bilirubin NEGATIVE (NEGATIVE); Blood NEGATIVE Ery/ul (0-5); Epithelial Cells RARE /HPF (FEW); Glucose NEGATIVE (NEGATIVE); Ketones NEGATIVE (NEGATIVE); Leukocyte Esterase NEGATIVE (NEGATIVE); Mucus SLIGHT /HPF (NEGATIVE); Nitrite NEGATIVE (NEGATIVE); Protein,Urine Dip NEGATIVE (Negative); RBC NONE SEEN /HPF (0-2); Specific Gravity 1.013 (1.005-1.025); Urobilinogen NEGATIVE mg/dL (0-1)
--- NOTE | 2021-05-07 09:02 | XRAY ---
Indication: Constipation, diarrhea, emesis. Multiple contiguous axial images obtained through the abdomen and pelvis without contrast. Comparison: September 11, 2019. Lung bases remain clear. Heart is not enlarged. Noncontrasted stomach and bowel loops appear nonobstructed. No bowel wall thickening or inflammatory changes on this noncontrast exam. Previous appendectomy. Mild fluid distended colon and rectum with fluid leveling favors diarrhea. No free fluid/air. Remaining liver, gallbladder, pancreas, spleen, adrenal glands, kidneys, ureters, bladder, and aorta are unremarkable for noncontrast exam. Osseous structures intact. Impression: 1. New fluid distended colon with fluid leveling favors clinically reported diarrhea. 2. Remaining CT abdomen/pelvis without contrast exam is negative. Comment: Preliminary interpretation made by [facility]. No critical discrepancy.
== END 2021-05-06 21:57 | disposition left against medical advice (07) ==
LOC: ED 19:16
DX: E87.5 Hyperkalemia (principal); D72.829 Elevated white blood cell count, unspecified; N28.9 Disorder of kidney and ureter, unspecified
CPT/HCPCS: 36000; 36415; 74176; 80053; 81001; 82150; 83605; 83690; 85025; 96374; 96375; 99284; J0610; J1170; J1815; J2405; A9270-GY

== ENCOUNTER 2021-05-07 16:28 | Emergency (ER) | payer MEDICAID ==
[2021-05-07 16:53] VITALS: BP 105/64; PULSE 101; O2SAT 100
[2021-05-07 17:26] LABS: Absolute Neutrophil Ct (ANC) 6.74 (1.4-6.9); BASOPHIL % 0.3 % (0.0-0.4); Basophil (Absolute #) 0.03 (0-0.4); Eosinophil % 5.1 % (0.00-5.0); Eosinophil (Absolute #) 0.52 (0-0.5); Hemoglobin 13.6 gm/dl (12.5-18.0); Lymphocyte (Absolute #) 2.16 (1.0-4.6); Lymphocytes % 21.4 % (24.0-44.0); Mean Cell Volume 88.6 fl (78-100); Mean Corpuscular Hemoglobin 28.7 pg (26-32); Mean Corpuscular Hgb Concent. 32.4 g/dl (32-36); Mean Platelet Volume 9.3 fl (7.5-11.0); Monocyte (Absolute #) 0.66 (0.0-1.3); Monocytes % 6.5 % (0.0-12.0); Neutrophil % 66.7 % (36.0-66.0); Platelet Count 283 K/mm3 (150-450); Red Blood Count 4.74 M/mm3 (4.1-5.6); Red Cell Distribution Width 14.2 % (11.5-14.0); White Blood Count 10.1 K/mm3 (4.0-10.5)
--- NOTE | 2021-05-07 17:26 | ERPHSYRPT ---
- History of Present Illness Historian: patient Exam Limitations: other (Poor historian) Patient Subjective Stated Complaint: " I was in here last night for the same problem and feel worse today. My stomach hurts all over and the pain is going into my left lower back." Triage Nursing Assessment: Pt presents to ER with complaints of nausea, vomiting, diarrhea, diffused abdominal pain that radiates to left lower back. Pt is pale, warm, and dry. Abdomen is soft and tender upon exam. Productive cough noted, denies short of breath. Pt is alert and oriented x 3, feels weak and "sick". Pt is here today with grandmother who states he has had issues with his potassium levels and blood pressure. She also states Dr. Wray would like him admitted. Physician History: 25 yo obese wm seen in ER last night for same complaint and found to be in renal failure w hyperkalemia who left AMA presents w "squeezing abdominal pain" x 4-5 months. He has had N/V/D wo melena/hematochezia/hematemesis/dysuria/hematuria/fever. Ct demonstrated fluid filled colon consistent w diarrhea. Appendix has been extracted in the past. Timing/Duration: other (4-5 months) Activities at Onset: rest Quality: other (Squeezing) Abdominal Pain Onset Location: generalized abdomen Pain Radiation: no radiation Severity of Pain-Max: moderate Severity of Pain-Current: moderate Modifying Factors: Improves With: nothing Associated Symptoms: diarrhea, nausea, vomiting, No back, No chest pain, No diaphoresis, No fever/chills, No fatigue, No headache, No heartburn, No loss of appetite, No neck pain, No rash, No shortness of breath, No syncope, No test icular pain, No weakness Previous symptoms: same symptoms as today Allergies/Adverse Reactions: aripiprazole [From Abilify] Allergy (Intermediate, Verified 05/07/21 16:53) BLACKED OUT Home Medications: Lisinopril 5 mg [Zestril 5 MG] 20 mg PO DAILY 10/09/15 [History] Albuterol 2.5 mg/3 ml Neb [Proventil 2.5 mg/3 ml Neb] 3 ml IH Q6H 11/05/16 [History] Albuterol Sulfate [Proair Hfa] 8.5 gm IH QID 11/05/16 [History] Paliperidone Palmitate [Invega Trinza] 410 mg IM Q3M 09/07/19 [History] Omeprazole 20 mg PO DAILY PRN PRN 09/09/19 [History] Hx Tetanus, Diphtheria Vaccination/Date Given: No Hx Influenza Vaccination/Date Given: No Hx Pneumococcal Vaccination/Date Given: No Immunizations Up to Date: No Travel Risk - International Travel Have you traveled outside of the country in past 3 weeks: No - Coronavirus Screening Are you exhibiting any of the following symptoms?: No Close contact with a COVID-19 positive Pt in past 14-21 Days: No - Vaccine Status Have you recieved a Covid-19 vaccination: No - Review of Systems Constitutional: No Symptoms Eyes: No Symptoms Ears, Nose, & Throat: No Symptoms Respiratory: No Symptoms Cardiac: No Symptoms Abdominal/Gastrointestinal: Abdominal Pain, Nausea, Vomiting, Diarrhea Genitourinary Symptoms: No Symptoms Musculoskeletal: No Symptoms Skin: No Symptoms Neurological: No Symptoms Psychological: No Symptoms Endocrine: No Symptoms Hematologic/Lymphatic: No Symptoms Immunological/Allergic: No Symptoms - Past Medical History Pertinent Past Medical History: Yes Neurological History: Migraines, Other ENT History: Other Cardiac History: Hypertension Respiratory History: Asthma Endocrine Medical History: No Pertinent History Musculoskeletal History: No Pertinent History GI Medical History: GERD, Other History: No Pertinent History Psycho-Social History: Anxiety, Attention Deficit Disorder, Depression Male Reproductive Disorders: No Pertinent History Other Medical History: lt ankle fx. flesh eating bacteria. schizophernia. orthostatic hypotension - Past Surgical History Past Surgical History: Yes Neuro Surgical History: No Pertinent History Cardiac: No Pertinent History Respiratory: No Pertinent History Gastrointestinal: Appendectomy Genitourinary: No Pertinent History Musculoskeletal: Orthopedic Surgery Male Surgical History: No Pertinent History Other Surgical History: LT LEG/ANKLE. EGD. rt leg debridement - Social History Smoking Status: Current every day smoker How long have you smoked: 7 years Exposure to second hand smoke: No Drug Use: none Patient Lives Alone: No Significant Family History: hypertension, other (mother recently from a bleeding stomach ulcer) - Nursing Vital Signs Nursing Vital Signs: Initial Vital Signs Temperature 96.7 F 05/07/21 16:45 Pulse Rate 101 H 05/07/21 16:45 Respiratory Rate 16 05/07/21 16:45 Blood Pressure 105/64 05/07/21 16:45 O2 Sat by Pulse Oximetry 100 05/07/21 16:45 Pain Scale Pain Intensity 6 Tachy - Physical Exam General Appearance: no apparent distress Eye Exam: PERRL/EOMI, eyes nml inspection Ears, Nose, Throat Exam: normal ENT inspection, TMs normal, pharynx normal, moist mucous membranes Neck Exam: normal inspection, non-tender, supple, full range of motion, No meningismus, No mass, No Brudzinski, No Kernig's Respiratory Exam: normal breath sounds, lungs clear, airway intact, No respiratory distress Cardiovascular Exam: tachycardia, capillary refill <2 sec, No murmur Gastrointestinal/Abdomen Exam: soft, normal bowel sounds, tenderness (Mild, diffuse wo guarding or rebound) Back Exam: normal inspection, normal range of motion, No CVA tenderness, No vertebral tenderness Extremity Exam: normal inspection, normal range of motion Neurologic Exam: alert, oriented x 3, cooperative, air pollution inspector II-XII nml as tested, normal mood/affect, nml cerebellar function, nml station & gait, sensation nml, No motor deficits, No sensory deficit Skin Exam: normal color, warm, dry, No rash Lymphatic Exam: No adenopathy SpO2 Interpretation: normal SpO2: 100 O2 Delivery: Room Air - Course Nursing assessment & vital signs reviewed: Yes Ordered Tests: Active Orders 24 hr Category Date Time Status AMYLASE Stat Lab 05/07/21 17:18 Completed CBC W DIFF Stat Lab 05/07/21 17:18 Completed CMP Stat Lab 05/07/21 17:18 Completed LIPASE Stat Lab 05/07/21 17:18 Completed UA W/RFX UR CULTURE Stat Lab 05/07/21 17:37 Completed Lab/Rad Data: Laboratory Result Diagrams 05/07/21 17:18 05/07/21 17:18 Laboratory Results 05/07/21 05/07/21 05/07/21 Range/Units 17:37 17:18 17:18 WBC 10.1 (4.0-10.5) K/mm3 RBC 4.74 (4.1-5.6) M/mm3 Hgb 13.6 (12.5-18.0) gm/dl Hct 42.0 (42-50) % MCV 88.6 (78-100) fl MCH 28.7 (26-32) pg MCHC 32.4 (32-36) g/dl RDW 14.2 H (11.5-14.0) % Plt Count 283 D (150-450) K/mm3 MPV 9.3 (7.5-11.0) fl Gran % 66.7 H (36.0-66.0) % Eos # (Auto) 0.52 H (0-0.5) Absolute Lymphs (auto) 2.16 (1.0-4.6) Absolute Monos (auto) 0.66 (0.0-1.3) Lymphocytes % 21.4 L (24.0-44.0) % Monocytes % 6.5 (0.0-12.0) % Eosinophils % 5.1 H (0.00-5.0) % Basophils % 0.3 (0.0-0.4) % Absolute Granulocytes 6.74 (1.4-6.9) Basophils # 0.03 (0-0.4) Sodium 136 L (137-145) mmol/L Potassium 5.1 (3.5-5.1) mmol/L Chloride 104 (98-107) mmol/L Carbon Dioxide 22 (22-30) mmol/L Anion Gap 15.3 H (5-15) MEQ/L BUN 21 H (9-20) mg/dL Creatinine 1.34 H (0.66-1.25) mg/dL Estimated GFR > 60.0 ML/MIN Glucose 78 (74-106) mg/dL Calcium 9.3 (8.4-10.2) mg/dL Total Bilirubin 0.20 (0.2-1.3) mg/dL AST 23 (17-59) U/L ALT 21 (0-50) U/L Alkaline Phosphatase 76 (38-126) U/L Serum Total Protein 7.4 (6.3-8.2) g/dL Albumin 4.4 (3.5-5.0) g/dL Amylase 63 (30-110) U/L Lipase 102 (23-300) U/L Urine Color YELLOW (YELLOW) Urine Appearance SLIGHTLY CLOUDY (CLEAR) Urine pH 5.0 (5-6) Ur Specific [place] 1.015 (1.005-1.025) Urine Protein NEGATIVE (Negative) Urine Ketones NEGATIVE (NEGATIVE) Urine Blood NEGATIVE (0-5) Osbaldo/ul Urine Nitrite NEGATIVE (NEGATIVE) Urine Bilirubin NEGATIVE (NEGATIVE) Urine Urobilinogen NEGATIVE (0-1) mg/dL Ur Leukocyte Esterase NEGATIVE (NEGATIVE) Urine WBC (Auto) NONE (0-5) /HPF Urine RBC (Auto) NONE (0-2) /HPF U Epithel Cells (Auto) NONE (FEW) /HPF Urine Bacteria (Auto) NONE (NEGATIVE) /HPF Urine Culture Reflexed NO (NO) Urine Glucose NEGATIVE (NEGATIVE) mg/dL - Progress Progress Note: 05/07/21 18:17 BUN/Cr improving and K wnl. Renal failure most likely due to Lisinopril. Will dc Lisinopril and start Norvasc Counseled pt/family regarding: lab results, diagnosis, need for follow-up - Departure Departure Disposition: Home Clinical Impression: Abdominal pain, JACOB inhibitor nephrotoxicity Condition: Stable Critical Care Time: No Referrals: JOLYNN WRAY MD [Primary Care Provider] - Instructions: Acute Abdomen (Belly Pain) Additional Instructions: Stop Lisinopril and start Norvasc Follow up with Dr. Wray in 1-2 days Return to ER for increasing pain or temperature greater than 100.5 Prescriptions: Dicyclomine HCl 20 mg [Bentyl 20 mg] 20 mg PO Q6H PRN PRN #15 tablet PRN Reason: Pain Amlodipine Besylate [Norvasc] 5 mg PO DAILY #30 tablet
[2021-05-07 17:35] LABS: Appearance SLIGHTLY CLOUDY (CLEAR); Bilirubin NEGATIVE (NEGATIVE); Blood NEGATIVE Ery/ul (0-5); Glucose NEGATIVE (NEGATIVE); Ketones NEGATIVE (NEGATIVE); Leukocyte Esterase NEGATIVE (NEGATIVE); Nitrite NEGATIVE (NEGATIVE); Protein,Urine Dip NEGATIVE (Negative); Specific Gravity 1.015 (1.005-1.025); Urobilinogen NEGATIVE mg/dL (0-1)
[2021-05-07 17:36] LABS: ALBUMIN 4.4 g/dL (3.5-5.0); ALKALINE PHOSPHATASE 76 U/L (38-126); AMYLASE 63 U/L (30-110); ANION GAP 15.3 MEQ/L (5-15); BLOOD UREA NITROGEN 21 mg/dL (9-20); CHLORIDE 104 mmol/L (98-107); Calcium 9.3 mg/dL (8.4-10.2); Carbon Dioxide 22 mmol/L (22-30); Creatinine 1 1.34 mg/dL (0.66-1.25); EST GLOMERULAR FILTRATION RATE > 60.0 ML/MIN; Glucose 78 mg/dL (74-106); LIPASE 102 U/L (23-300); Potassium 5.1 mmol/L (3.5-5.1); SGOT/AST 23 U/L (17-59); SGPT/ALT 21 U/L (0-50); SODIUM 136 mmol/L (137-145); Total Protein 7.4 g/dL (6.3-8.2)
== END 2021-05-07 18:31 | disposition home or self-care (01) ==
LOC: ED 16:28
DX: R10.9 Unspecified abdominal pain (principal); T45.4X5A Adverse effect of iron and its compounds, initial encounter
CPT/HCPCS: 36000; 36415; 80053; 81001; 82150; 83690; 85025; 99283

== ENCOUNTER 2024-11-22 19:07 | Emergency (ER) | payer MEDICAID ==
[2024-11-22 19:45] VITALS: RESP 18; TEMP 97.9
--- NOTE | 2024-11-22 20:21 | ERPHSYRPT ---
- History of Present Illness Time Seen by Provider: 11/22/24 20:00 Source: patient Exam Limitations: clinical condition Patient Subjective Stated Complaint: c/o eye irritation, feels like "hair balls coming out of my eyes" Triage Nursing Assessment: Pt ambulated into ER without diff. Pt brought in a styrofoam food container with him. Pt c/o bilat eye irritaion, itching at times, states, "It feels like hair balls coming out of my eyes". No obvious drainage or irritation noted. Pt cannot give me a date when this started, just says "it just happens sometimes". Timing/Duration: today Severity: mild Associated Symptoms: denies symptoms Allergies/Adverse Reactions: aripiprazole [From Impulsiv] Allergy (Intermediate, Verified 11/22/24 19:45) BLACKED OUT Hx Tetanus, Diphtheria Vaccination/Date Given: (unknown) Hx Influenza Vaccination/Date Given: No Hx Pneumococcal Vaccination/Date Given: No Travel Risk - International Travel Have you traveled outside of the country in past 3 weeks: No - Emerging Infectious Disease Are you exhibiting symptoms associated with any current EIDs: No - Review of Systems Constitutional: No Symptoms Eyes: Discharge Ears, Nose, & Throat: No Symptoms Respiratory: No Symptoms Cardiac: No Symptoms Abdominal/Gastrointestinal: No Symptoms Genitourinary Symptoms: No Symptoms Musculoskeletal: No Symptoms - Past Medical History Pertinent Past Medical History: Yes Neurological History: Migraines, Other ENT History: Other Cardiac History: Hypertension Respiratory History: Asthma Endocrine Medical History: No Pertinent History Musculoskeletal History: No Pertinent History GI Medical History: GERD, Other History: No Pertinent History Psycho-Social History: Anxiety, Attention Deficit Disorder, Depression Male Reproductive Disorders: No Pertinent History Other Medical History: lt ankle fx. flesh eating bacteria. schizophernia. orthostatic hypotension - Past Surgical History Past Surgical History: Yes Neuro Surgical History: No Pertinent History Cardiac: No Pertinent History Respiratory: No Pertinent History Gastrointestinal: Appendectomy Genitourinary: No Pertinent History Musculoskeletal: Orthopedic Surgery Male Surgical History: No Pertinent History Other Surgical History: LT LEG/ANKLE. EGD. rt leg debridement Significant Family History: hypertension, other (mother recently from a bleeding stomach ulcer) - Social History Smoking Status: Current every day smoker How long have you smoked: 10 yrs Exposure to second hand smoke: Yes Drug Use: none - Social Determinants of Health Will the patient participate in the screening: Yes Do you worry about a steady place to live?: Yes Do you have any problems with any of the following?: Pest (bugs,ants,or mice) In the past 12 months,have you had to go without utilities?: No Transportation Issues: No Has anyone in your support network made you feel unsafe?: No Have you or anyone in your house had to go w/o enough food: No - Nursing Vital Signs Nursing Vital Signs: Initial Vital Signs Temperature 97.9 F 11/22/24 19:43 Pulse Rate 88 11/22/24 19:43 Respiratory Rate 18 11/22/24 19:43 Blood Pressure 133/75 11/22/24 19:43 O2 Sat by Pulse Oximetry 98 11/22/24 19:43 Pain Scale Pain Intensity 1 - Physical Exam General Appearance: no apparent distress Eye Exam: PERRL/EOMI, eyes nml inspection Ears, Nose, Throat Exam: normal ENT inspection Respiratory Exam: normal breath sounds Cardiovascular Exam: regular rate/rhythm Gastrointestinal/Abdomen Exam: soft SpO2: 98 Ordered Tests: Active Orders 24 hr Category Date Time Status ACO SDOH Referral ONCE Cons 11/22/24 20:09 Active - Progress Progress Note: Patient was seen and evaluated for bilateral conjunctival discharge which he states he has had off-and-on for the past few weeks getting worse today so he decided to come in for evaluation. Examination of both eyes reveals no acute. However patient states that he cleaned his eyes prior to coming and. I will discharge him home with antibiotic drops prophylactically he was informed of the need to follow-up with his primary care provider and his health occupations teacher in the morning 11/22/24 20:18 Medical Desision Making - Discussion of managment Agreed on:: need for follow-up Will see patient: in hospital - Departure Departure Disposition: Home Clinical Impression: Conjunctivitis Condition: Stable Critical Care Time: No Referrals: JOLYNN WRAY MD [Primary Care Provider] - Follow up/PCP as directed Prescriptions: Ofloxacin Ophth 5 ml [Ocuflox OPHTHALMIC 5 ML] 1 drop OP TID #1 applic
[2024-11-22 20:43] VITALS: BP 136/78; PULSE 99; O2SAT 100
== END 2024-11-22 20:38 | disposition home or self-care (01) ==
LOC: ED 19:07
DX: H10.9 Unspecified conjunctivitis (principal); I10 Essential (primary) hypertension; Z79.899 Other long term (current) drug therapy; Z72.0 Tobacco use; Z59.19 Other inadequate housing; Z59.819 Housing instability, housed unspecified
CPT/HCPCS: 99283